=== PATIENT | male | born 1960 | race Caucasian/White ===

== ENCOUNTER → 2020-08-22 | Outpatient (CLI) | payer MEDICARE, MEDICAID ==
--- NOTE | 2020-08-22 18:13 | Diagnostic Imaging Report ---
INDICATION: Chronic left hip pain. AP and oblique views of the left hip are obtained. Left hip prosthesis is visualized. There is some lucency about the proximal femoral component, device loosening not excluded. There is no acute fracture. There is also some questionable lucency about the acetabular component. We do not have previous studies for comparison. IMPRESSION: Left hip prosthesis in place. There is no acute fracture. There is some lucency about the proximal components which may represent device loosening, correlate with previous films if available. Dictated by: Dictated on workstation # [id number]
== END ==
LOC: RAD 15:06
PROVIDERS: ATTEND Family Medicine
DX: M25.552 Pain in left hip (principal); Z96.642 Presence of left artificial hip joint
CPT/HCPCS: 73502